=== PATIENT | female | born 1965 | race Two or more races ===

== ENCOUNTER 2020-03-23 18:15 | Emergency (ER) | payer OTHER ==
[2020-03-23 18:55] VITALS: BMI 23.5
[2020-03-23 22:59] VITALS: BP 101/56; PULSE 82; TEMP 98.2
== END 2020-03-24 01:46 | disposition home or self-care (01) ==
LOC: JER 18:15
DX: K94.23 Gastrostomy malfunction (principal)
CPT/HCPCS: 71045-TC-FY; 74018-TC-FY; 99284-25

== ENCOUNTER 2020-03-25 14:14 | Emergency (ER) | payer OTHER ==
[2020-03-25 14:22] VITALS: TEMP 97.1; BMI 23.5
[2020-03-25 15:36] VITALS: BP 114/77; PULSE 80
== END 2020-03-25 16:48 ==
LOC: JER 14:14
DX: K94.23 Gastrostomy malfunction (principal)
CPT/HCPCS: 74018-TC-FY; 99284-25

== ENCOUNTER 2020-03-26 14:47 | Emergency (ER) | payer OTHER ==
[2020-03-26 15:09] VITALS: BMI 23.5
[2020-03-26 17:58] VITALS: BP 115/89; PULSE 89; TEMP 98.9
== END 2020-03-26 17:58 ==
LOC: JER 14:47
DX: K94.23 Gastrostomy malfunction (principal)
CPT/HCPCS: 49450; 99283-25; C1769; C1887